=== PATIENT | female | born 1945 | race American Indian/Alaskan Native ===

== ENCOUNTER 2019-09-14 22:53 | Emergency (ER) | payer SELFPAY ==
[2019-09-14] MEDS ORDERED: NORepinephrine/NS 4 MG-250 ML 4 MG/250 ML BAG IV ONE (23:05)
[2019-09-14] MEDS ORDERED: SODIUM CHLORIDE 0.9% 1000 ML 1,000 ML ONE (23:05)
[2019-09-14] MEDS ORDERED: DEXTROSE 50% IN WATER (25GM) 50 ML SYRINGE IV ONE (23:08)
--- NOTE | 2019-09-14 23:26 | Emergency Department Report ---
ED Altered Mental Status HPI - General Stated Complaint: CARDIAC ARREST Time Seen by Provider: 09/14/19 23:20 - History of Present Illness Initial Comments: brought to ER by EMS who states patient had respiratory arrest at home, grandson started cpr, upon EMS arrival patient was intubated and ACLS protocol started with initial rhythm being asystole. Pulse was regained after 3 rounds of EPi and about 10mns of chest compression. Patient was then brought ER. Patient was promptly switched to the ventilator and placed on monitor. Pupils were fixed and dilated, and no spontaneous movement despite no sedation. pmhx, asthma per family. Daughter also states that patient has stopped eating for about a month. - Related Data Allergies Allergy/AdvReac Type Severity Reaction Status Date / Time Unable to Assess Allergy Unverified 09/15/19 04:48 ED Review of Systems ROS: Stated complaint: CARDIAC ARREST Other details as noted in HPI Comment: Unobtainable due to pts medical conditions ED Physical Exam - General Limitations: Physical Limitation General appearance: cachectic - Head Head exam: Present: atraumatic - Eye Eye exam: Present: other (pupils fixed and dilated) - Respiratory Respiratory exam: Present: other (no spontaneous bs on vent.) - Cardiovascular Cardiovascular Exam: Present: regular rate - GI/Abdominal GI/Abdominal exam: Present: soft - Neurological Exam Neurological exam: Present: other (no spontaneous movement, no gag reflex.) ED Course Vital Signs 09/14/19 09/15/19 23:35 04:15 Pulse Rate 98 H 43 L Blood Pressure 84/30 O2 Sat by Pulse 97 Oximetry - Reevaluation(s) Reevaluation #1: presented to ER with I/O, which became unusable, attempt x 1 for right subclavian tlc, no success. Post attempt chest xray did reveal a right sided pneumo, ddx s/p chest compression vs central attempt complications. 20 fr chest tube placed with near resolution of pneumo. Right femoral tlc establish. Despite being on epi drip, levophed drip, and dopamine drip, patient remained hypotensive 50s/30s. Patient's family requested that patient is made a dnr, at 421am, patient's hr dropped, lost pulse and asystole on monitor. She was declared . - Lab Data Result diagrams: 09/14/19 23:46 09/14/19 23:46 Lab Results 09/14/19 09/14/19 09/14/19 Range/Units 23:09 23:17 23:44 WBC (4.5-11.0) K/mm3 RBC (3.65-5.03) M/mm3 Hgb (10.1-14.3) gm/dl Hct (30.3-42.9) % MCV (79-97) fl MCH (28-32) pg MCHC (30-34) % RDW (13.2-15.2) % Plt Count (140-440) K/mm3 Add Manual Diff Total Counted Seg Neuts % (Manual) (40.0-70.0) % Band Neutrophils % % Lymphocytes % (Manual) (13.4-35.0) % Reactive Lymphs % (Man) % Monocytes % (Manual) (0.0-7.3) % Eosinophils % (Manual) (0.0-4.3) % Basophils % (Manual) (0.0-1.8) % Metamyelocytes % % Myelocytes % % Promyelocytes % % Blast Cells % % Nucleated RBC % Seg Neutrophils # Man (1.8-7.7) K/mm3 Band Neutrophils # K/mm3 Lymphocytes # (Manual) (1.2-5.4) K/mm3 Abs React Lymphs (Man) K/mm3 Monocytes # (Manual) (0.0-0.8) K/mm3 Eosinophils # (Manual) (0.0-0.4) K/mm3 Basophils # (Manual) (0.0-0.1) K/mm3 Metamyelocytes # K/mm3 Myelocytes # K/mm3 Promyelocytes # K/mm3 Blast Cells # K/mm3 WBC Morphology Hypersegmented Neuts Hyposegmented Neuts Hypogranular Neuts Smudge Cells Toxic Granulation Toxic Vacuolation Dohle Bodies Pelger-Huet Anomaly [place] Rods Platelet Estimate Clumped Platelets Plt Clumps, EDTA Large Platelets Giant Platelets Platelet Satelliting Plt Morphology Comment RBC Morphology Dimorphic RBCs Polychromasia Hypochromasia Poikilocytosis Anisocytosis Microcytosis Macrocytosis Spherocytes Pappenheimer Bodies Sickle Cells Target Cells Tear Drop Cells Ovalocytes Helmet Cells [place] Bodies [place] Yeison Cells Bite Cells Crenated Cell Elliptocytes Acanthocytes (Spur) Rouleaux Hemoglobin C Crystals Schistocytes Malaria parasites Stevie Bodies Hem Pathologist Commnt PT (12.2-14.9) Sec. INR (0.87-1.13) APTT (24.2-36.6) Sec. ABG pH (7.350-7.450) pH Units ABG pCO2 mm Hg ABG pO2 (80.0-90.0) mm Hg ABG HCO3 (20.0-26.0) mmol/L ABG O2 Saturation (95.0-99.0) % ABG O2 Content (0.0-44) ABG Base Excess (-2.0-3.0) mmol/L ABG Hemoglobin (12.0-16.0) gm/dl ABG Carboxyhemoglobin (0.0-5.0) % ABG Methemoglobin (0.0-1.5) % Oxyhemoglobin (95.0-99.0) % FiO2 % Sodium (137-145) mmol/L Potassium (3.6-5.0) mmol/L Chloride (98-107) mmol/L Carbon Dioxide (22-30) mmol/L Anion Gap mmol/L BUN (7-17) mg/dL Creatinine (0.7-1.2) mg/dL Estimated GFR ml/min BUN/Creatinine Ratio % Glucose (65-100) mg/dL POC Glucose < 40 L < 40 L 409 H (70-105) Lactic Acid (0.7-2.0) mmol/L Calcium (8.4-10.2) mg/dL Total Bilirubin (0.1-1.2) mg/dL AST (5-40) units/L ALT (7-56) units/L Alkaline Phosphatase (35-129) units/L Troponin T (0.00-0.029) ng/mL Total Protein (6.3-8.2) g/dL Albumin (3.9-5) g/dL Albumin/Globulin Ratio % Blood Type Antibody Screen Crossmatch 09/14/19 09/14/19 09/14/19 Range/Units 23:46 23:46 23:46 WBC 11.0 (4.5-11.0) K/mm3 RBC 2.19 L (3.65-5.03) M/mm3 Hgb 6.5 L (10.1-14.3) gm/dl Hct 21.6 L (30.3-42.9) % MCV 99 H (79-97) fl MCH 30 (28-32) pg MCHC 30 (30-34) % RDW 18.0 H (13.2-15.2) % Plt Count 599 H (140-440) K/mm3 Add Manual Diff Complete Total Counted 100 Seg Neuts % (Manual) 38.0 L (40.0-70.0) % Band Neutrophils % 52.0 % Lymphocytes % (Manual) 8.0 L (13.4-35.0) % Reactive Lymphs % (Man) 0 % Monocytes % (Manual) 2.0 (0.0-7.3) % Eosinophils % (Manual) 0 (0.0-4.3) % Basophils % (Manual) 0 (0.0-1.8) % Metamyelocytes % 0 % Myelocytes % 0 % Promyelocytes % 0 % Blast Cells % 0 % Nucleated RBC % Not Reportable Seg Neutrophils # Man 4.2 (1.8-7.7) K/mm3 Band Neutrophils # 5.7 K/mm3 Lymphocytes # (Manual) 0.9 L (1.2-5.4) K/mm3 Abs React Lymphs (Man) 0.0 K/mm3 Monocytes # (Manual) 0.2 (0.0-0.8) K/mm3 Eosinophils # (Manual) 0.0 (0.0-0.4) K/mm3 Basophils # (Manual) 0.0 (0.0-0.1) K/mm3 Metamyelocytes # 0.0 K/mm3 Myelocytes # 0.0 K/mm3 Promyelocytes # 0.0 K/mm3 Blast Cells # 0.0 K/mm3 WBC Morphology Not Reportable Hypersegmented Neuts Not Reportable Hyposegmented Neuts Not Reportable Hypogranular Neuts Not Reportable Smudge Cells Not Reportable Toxic Granulation Not Reportable Toxic Vacuolation Not Reportable Dohle Bodies Not Reportable Pelger-Huet Anomaly Not Reportable [place] Rods Not Reportable Platelet Estimate Consistent w auto Clumped Platelets Not Reportable Plt Clumps, EDTA Not Reportable Large Platelets Not Reportable Giant Platelets Not Reportable Platelet Satelliting Not Reportable Plt Morphology Comment Not Reportable RBC Morphology Not Reportable Dimorphic RBCs Not Reportable Polychromasia Not Reportable Hypochromasia Not Reportable Poikilocytosis Not Reportable Anisocytosis Not Reportable Microcytosis Not Reportable Macrocytosis Not Reportable Spherocytes Not Reportable Pappenheimer Bodies Not Reportable Sickle Cells Not Reportable Target Cells Not Reportable Tear Drop Cells Not Reportable Ovalocytes Not Reportable Helmet Cells Not Reportable [place] Bodies Not Reportable [place] Not Reportable [place] Cells Rare Bite Cells Not Reportable Crenated Cell Not Reportable Elliptocytes Rare Acanthocytes (Spur) Not Reportable Rouleaux Not Reportable Hemoglobin C Crystals Not Reportable Schistocytes Not Reportable Malaria parasites Not Reportable Stevie Bodies Not Reportable Hem Pathologist Commnt No PT (12.2-14.9) Sec. INR (0.87-1.13) APTT (24.2-36.6) Sec. ABG pH (7.350-7.450) pH Units ABG pCO2 mm Hg ABG pO2 (80.0-90.0) mm Hg ABG HCO3 (20.0-26.0) mmol/L ABG O2 Saturation (95.0-99.0) % ABG O2 Content (0.0-44) ABG Base Excess (-2.0-3.0) mmol/L ABG Hemoglobin (12.0-16.0) gm/dl ABG Carboxyhemoglobin (0.0-5.0) % ABG Methemoglobin (0.0-1.5) % Oxyhemoglobin (95.0-99.0) % FiO2 % Sodium 135 L (137-145) mmol/L Potassium 5.9 H (3.6-5.0) mmol/L Chloride 91.8 L (98-107) mmol/L Carbon Dioxide 10 L (22-30) mmol/L Anion Gap 39 mmol/L BUN 39 H (7-17) mg/dL Creatinine 1.9 H (0.7-1.2) mg/dL Estimated GFR 31 ml/min BUN/Creatinine Ratio 21 % Glucose 360 H (65-100) mg/dL POC Glucose (70-105) Lactic Acid (0.7-2.0) mmol/L Calcium 9.3 (8.4-10.2) mg/dL Total Bilirubin 1.20 (0.1-1.2) mg/dL AST 795 H (5-40) units/L ALT 144 H (7-56) units/L Alkaline Phosphatase 244 H (35-129) units/L Troponin T 0.010 (0.00-0.029) ng/mL Total Protein 4.1 L (6.3-8.2) g/dL Albumin 1.4 L (3.9-5) g/dL Albumin/Globulin Ratio 0.5 % Blood Type Antibody Screen Crossmatch 09/14/19 09/14/19 09/15/19 Range/Units 23:46 23:46 01:13 WBC (4.5-11.0) K/mm3 RBC (3.65-5.03) M/mm3 Hgb (10.1-14.3) gm/dl Hct (30.3-42.9) % MCV (79-97) fl MCH (28-32) pg MCHC (30-34) % RDW (13.2-15.2) % Plt Count (140-440) K/mm3 Add Manual Diff Total Counted Seg Neuts % (Manual) (40.0-70.0) % Band Neutrophils % % Lymphocytes % (Manual) (13.4-35.0) % Reactive Lymphs % (Man) % Monocytes % (Manual) (0.0-7.3) % Eosinophils % (Manual) (0.0-4.3) % Basophils % (Manual) (0.0-1.8) % Metamyelocytes % % Myelocytes % % Promyelocytes % % Blast Cells % % Nucleated RBC % Seg Neutrophils # Man (1.8-7.7) K/mm3 Band Neutrophils # K/mm3 Lymphocytes # (Manual) (1.2-5.4) K/mm3 Abs React Lymphs (Man) K/mm3 Monocytes # (Manual) (0.0-0.8) K/mm3 Eosinophils # (Manual) (0.0-0.4) K/mm3 Basophils # (Manual) (0.0-0.1) K/mm3 Metamyelocytes # K/mm3 Myelocytes # K/mm3 Promyelocytes # K/mm3 Blast Cells # K/mm3 WBC Morphology Hypersegmented Neuts Hyposegmented Neuts Hypogranular Neuts Smudge Cells Toxic Granulation Toxic Vacuolation Dohle Bodies Pelger-Huet Anomaly [place] Rods Platelet Estimate Clumped Platelets Plt Clumps, EDTA Large Platelets Giant Platelets Platelet Satelliting Plt Morphology Comment RBC Morphology Dimorphic RBCs Polychromasia Hypochromasia Poikilocytosis Anisocytosis Microcytosis Macrocytosis Spherocytes Pappenheimer Bodies Sickle Cells Target Cells Tear Drop Cells Ovalocytes Helmet Cells [place] Bodies [place] Yeison Cells Bite Cells Crenated Cell Elliptocytes Acanthocytes (Spur) Rouleaux Hemoglobin C Crystals Schistocytes Malaria parasites Stevie Bodies Hem Pathologist Commnt PT 36.4 H (12.2-14.9) Sec. INR 3.56 H (0.87-1.13) APTT 71.9 H* (24.2-36.6) Sec. ABG pH 6.916 L* (7.350-7.450) pH Units ABG pCO2 52.6 mm Hg ABG pO2 129.9 H (80.0-90.0) mm Hg ABG HCO3 10.4 L (20.0-26.0) mmol/L ABG O2 Saturation 96.2 (95.0-99.0) % ABG O2 Content 11.7 (0.0-44) ABG Base Excess -21.1 L (-2.0-3.0) mmol/L ABG Hemoglobin 8.6 L (12.0-16.0) gm/dl ABG Carboxyhemoglobin 1.3 (0.0-5.0) % ABG Methemoglobin 0.6 (0.0-1.5) % Oxyhemoglobin 94.4 L (95.0-99.0) % FiO2 70 % Sodium (137-145) mmol/L Potassium (3.6-5.0) mmol/L Chloride (98-107) mmol/L Carbon Dioxide (22-30) mmol/L Anion Gap mmol/L BUN (7-17) mg/dL Creatinine (0.7-1.2) mg/dL Estimated GFR ml/min BUN/Creatinine Ratio % Glucose (65-100) mg/dL POC Glucose (70-105) Lactic Acid 21.50 H* (0.7-2.0) mmol/L Calcium (8.4-10.2) mg/dL Total Bilirubin (0.1-1.2) mg/dL AST (5-40) units/L ALT (7-56) units/L Alkaline Phosphatase (35-129) units/L Troponin T (0.00-0.029) ng/mL Total Protein (6.3-8.2) g/dL Albumin (3.9-5) g/dL Albumin/Globulin Ratio % Blood Type Antibody Screen Crossmatch 09/15/19 09/15/19 Range/Units 01:44 01:48 WBC (4.5-11.0) K/mm3 RBC (3.65-5.03) M/mm3 Hgb (10.1-14.3) gm/dl Hct (30.3-42.9) % MCV (79-97) fl MCH (28-32) pg MCHC (30-34) % RDW (13.2-15.2) % Plt Count (140-440) K/mm3 Add Manual Diff Total Counted Seg Neuts % (Manual) (40.0-70.0) % Band Neutrophils % % Lymphocytes % (Manual) (13.4-35.0) % Reactive Lymphs % (Man) % Monocytes % (Manual) (0.0-7.3) % Eosinophils % (Manual) (0.0-4.3) % Basophils % (Manual) (0.0-1.8) % Metamyelocytes % % Myelocytes % % Promyelocytes % % Blast Cells % % Nucleated RBC % Seg Neutrophils # Man (1.8-7.7) K/mm3 Band Neutrophils # K/mm3 Lymphocytes # (Manual) (1.2-5.4) K/mm3 Abs React Lymphs (Man) K/mm3 Monocytes # (Manual) (0.0-0.8) K/mm3 Eosinophils # (Manual) (0.0-0.4) K/mm3 Basophils # (Manual) (0.0-0.1) K/mm3 Metamyelocytes # K/mm3 Myelocytes # K/mm3 Promyelocytes # K/mm3 Blast Cells # K/mm3 WBC Morphology Hypersegmented Neuts Hyposegmented Neuts Hypogranular Neuts Smudge Cells Toxic Granulation Toxic Vacuolation Dohle Bodies Pelger-Huet Anomaly [place] Rods Platelet Estimate Clumped Platelets Plt Clumps, EDTA Large Platelets Giant Platelets Platelet Satelliting Plt Morphology Comment RBC Morphology Dimorphic RBCs Polychromasia Hypochromasia Poikilocytosis Anisocytosis Microcytosis Macrocytosis Spherocytes Pappenheimer Bodies Sickle Cells Target Cells Tear Drop Cells Ovalocytes Helmet Cells [place] Bodies [place] Yeison Cells Bite Cells Crenated Cell Elliptocytes Acanthocytes (Spur) Rouleaux Hemoglobin C Crystals Schistocytes Malaria parasites Stevie Bodies Hem Pathologist Commnt PT (12.2-14.9) Sec. INR (0.87-1.13) APTT (24.2-36.6) Sec. ABG pH (7.350-7.450) pH Units ABG pCO2 mm Hg ABG pO2 (80.0-90.0) mm Hg ABG HCO3 (20.0-26.0) mmol/L ABG O2 Saturation (95.0-99.0) % ABG O2 Content (0.0-44) ABG Base Excess (-2.0-3.0) mmol/L ABG Hemoglobin (12.0-16.0) gm/dl ABG Carboxyhemoglobin (0.0-5.0) % ABG Methemoglobin (0.0-1.5) % Oxyhemoglobin (95.0-99.0) % FiO2 % Sodium (137-145) mmol/L Potassium (3.6-5.0) mmol/L Chloride (98-107) mmol/L Carbon Dioxide (22-30) mmol/L Anion Gap mmol/L BUN (7-17) mg/dL Creatinine (0.7-1.2) mg/dL Estimated GFR ml/min BUN/Creatinine Ratio % Glucose (65-100) mg/dL POC Glucose (70-105) Lactic Acid 20.10 H* (0.7-2.0) mmol/L Calcium (8.4-10.2) mg/dL Total Bilirubin (0.1-1.2) mg/dL AST (5-40) units/L ALT (7-56) units/L Alkaline Phosphatase (35-129) units/L Troponin T (0.00-0.029) ng/mL Total Protein (6.3-8.2) g/dL Albumin (3.9-5) g/dL Albumin/Globulin Ratio % Blood Type O POSITIVE Antibody Screen Negative Crossmatch See Detail Critical care attestation.: If time is entered above; I have spent that time in minutes in the direct care of this critically ill patient, excluding procedure time. ED Disposition Clinical Impression: Cardiac arrest Disposition: [id number] Is pt being admited?: No Condition: Stable Referrals: PRIMARY CARE, [Primary Care Provider] - 3-5 Days
[2019-09-14] MEDS ORDERED: SODIUM CHLORIDE 0.9% 1000 ML IV SOLN IV ONE (23:28)
[2019-09-14] MEDS ORDERED: AZITHROMYCIN 500 MG in SODIUM CHLORIDE 0.9% 250ML 250 ML IV ONE (23:36)
[2019-09-14] MEDS ORDERED: cefTRIAXone/NS 2 GM/100 ML 2 GM/100 ML BAG IV ONE (23:36)
[2019-09-14] MEDS ORDERED: NORepinephrine/NS 4 MG-250 ML 4 MG/250 ML BAG IV SCH (23:45)
[2019-09-14] MEDS ORDERED: D5W/0.9% NACL 1,000 ML IV SCH (23:45)
--- NOTE | 2019-09-15 00:01 | XRay Report ---
CHEST 1 VIEW 11:30 PM INDICATION / CLINICAL INFORMATION: Altered mental status. COMPARISON: None available. FINDINGS: SUPPORT DEVICES: There is an endotracheal tube with the tip approximately 7 cm above the [place]. HEART / MEDIASTINUM: The heart size and pulmonary vasculature are normal. LUNGS / PLEURA: There are moderate parenchymal opacities in both mid/central lungs. More focal consol idation/atelectasis is present in the right lower lung. The lungs are hyperinflated. There is a moder ately large right pneumothorax. ADDITIONAL FINDINGS: No significant additional findings. IMPRESSION: 1. Moderately large right pneumothorax. 2. Moderate bilateral parenchymal disease, right greater than left. CRITICAL RESULT: Time of Discovery (TEST DESIGNER/CDT): 10:54 PM Time of Communication (TEST DESIGNER/CDT): 10:54 PM Licensed Practitioner Receiving Report: Dr. Gonzalez. Read Back Performed: Not applicable. Signer Name: Santi Magallanes MD Signed: 09/14/2019 11:56 PM Workstation Name: [id number]
[2019-09-15 00:08] LABS: Hematocrit 21.6 % (30.3-42.9); Hemoglobin 6.5 gm/dl (10.1-14.3); Mean Corpuscular HGB Conc 30 % (30-34); Mean Corpuscular Volume 99 fl (79-97); Platelet Count 599 K/mm3 (140-440); Red Blood Count 2.19 M/mm3 (3.65-5.03)
[2019-09-15 00:23] LABS: INR 3.56 (0.87-1.13)
[2019-09-15 00:28] LABS: Partial Thromboplastin Time 71.9 Sec. (24.2-36.6)
[2019-09-15 00:35] LABS: Albumin 1.4 g/dL (3.9-5); Calcium 9.3 mg/dL (8.4-10.2)
--- NOTE | 2019-09-15 01:21 | XRay Report ---
CHEST 1 VIEW 12:44 AM INDICATION / CLINICAL INFORMATION: Status post chest tube placement. COMPARISON: Yesterday. FINDINGS: SUPPORT DEVICES: There is a new right chest tube with the tip overlying the lung apex. The tip of the endotracheal tube is 6 cm above the [place]. HEART / MEDIASTINUM: Unchanged. LUNGS / PLEURA: Patchy bilateral parenchymal disease is again identified with significant improvement on the right. Small residual subpulmonic pneumothorax on the right. ADDITIONAL FINDINGS: No significant additional findings. IMPRESSION: 1. New right chest tube with marked decrease in size of the right pneumothorax. Small residual right subpulmonic pneumothorax is present. 2. Bilateral parenchymal disease with significant improvement on the right. Signer Name: Santi Magallanes MD Signed: 09/15/2019 1:17 AM Workstation Name: [id number]
--- NOTE | 2019-09-15 01:36 | Emergency Department Report ---
- Central Line Placement Right Femoral Consent Obtained: emergent situation Time Out Performed: Yes Patient Placed on Monitor/Pulse Ox: Yes MD Prep: mask, gown, gloves Central Line Prep: Chlorhexidine scrub Local Anesthesia Used: Lidocaine 1% Amount of Anesthesia Used (mls): 3 Ultrasound Used for Placement: No Central Line Lumen Inserted: triple Bloods Obtained for Lab: Yes Central Line Position: good blood return, all ports aspirated, flus, sutured in place with nyl Dressing Applied: Tegaderm Patient Tolerated Procedure: well Complications: none
[2019-09-15 01:38] LABS: ABG Base Excess -21.1 mmol/L (-2.0-3.0); ABG HCO3 10.4 mmol/L (20.0-26.0); ABG Methemoglobin 0.6 % (0.0-1.5); ABG Oxygen Saturation 96.2 % (95.0-99.0); ABG PCO2 52.6 mm Hg; ABG PO2 129.9 mm Hg (80.0-90.0)
[2019-09-15 01:41] LABS: ABG PH 6.916 pH Units (7.350-7.450)
[2019-09-15] MEDS ORDERED: SODIUM BICARBONATE 150 MEQ in DEXTROSE 5% IN WATER 1,000 ML IV ONE (01:45)
[2019-09-15] MEDS ORDERED: SODIUM CHLORIDE 0.9% 500 ML 500 ML IV ONE (01:46)
[2019-09-15] MEDS ORDERED: EPINEPHrine 1 MG/1 ML 8 MG in SODIUM CHLORIDE 0.9% 250ML 242 ML IV ONE (02:04)
[2019-09-15] MEDS ORDERED: SODIUM CHLORIDE 0.9% 1000 ML 2,000 ML ONE (02:07)
[2019-09-15] MEDS ORDERED: SODIUM BICARB 8.4% 50 MEQ/50 ML SYRINGE IV ONE ×2 (02:09)
[2019-09-15] MEDS ORDERED: cefTRIAXone/NS 2 GM/100 ML 2 GM/100 ML BAG IV ONE (02:22)
[2019-09-15 02:23] LABS: Band Neutrophils # (Manual) 5.7 K/mm3; Basophils % (Manual) 0 % (0.0-1.8); Eosinophils % (Manual) 0 % (0.0-4.3); Total Cells Counted 100
[2019-09-15 02:24] LABS: Burr Cells Rare
[2019-09-15 02:25] LABS: Platelet Estimate Consistent w Auto
[2019-09-15] MEDS ORDERED: PHYTONADIONE 10 MG/1 ML (ADULT ONLY)*INJECTION SUB-Q ONE (04:09)
[2019-09-15 07:11] VITALS: BP 56/33
== END 2019-09-15 06:46 ==
LOC: ED 22:53
DX: I46.9 Cardiac arrest, cause unspecified (principal)
CPT/HCPCS: 36415; 71045; 80053; 82140; 82803; 82962; 84484; 85007; 85025; 85610; 85730; 86850; 86900; 86901; 86920; 87040; 93005; 93010; 96365; 96366; 96367; 96368; 96375; 99285; J0171; J0456; J0696; J7030; J7042; J7050; J7070; 36430; 94002; 96361